=== PATIENT | female | born 1965 | race Caucasian/White ===

== ENCOUNTER 2023-12-30 11:03 | Emergency (ER) | payer MEDICARE ==
[~2023-12-30] VITALS: Ht 162.6 cm; Wt 69.4 kg
[2023-12-30 11:15] VITALS: PULSE 100; RESP 18; TEMP 98.2; O2SAT 99
[2023-12-30] MEDS ORDERED: IOPAMIDOL 370 MG/ML 100 ML INFUS..BTL INJ ONE (14:12)
[2023-12-30] MEDS: SODIUM CHLORIDE 0.9% 1000ML 1,000 ML IV SCH (14:35)
[2023-12-30] MEDS: Morphine 4mg INJECTION 4 MG/ML INJ IV ONE (16:19)
[2023-12-30] MEDS: ONDANSETRON HCL INJ 2MG/ML 2ML 2 MG/ML VIAL IV STA (16:19)
[2023-12-30] MEDS: ACETAMINOPHEN 325 MG TAB PO ONE (16:23)
== END 2023-12-30 19:11 | disposition other institution (70) ==
LOC: FSED 11:36
DX: S32.391A Other fracture of right ilium, initial encounter for closed fracture (principal); M25.561 Pain in right knee; W01.0XXA Fall on same level from slipping, tripping and stumbling without subsequent striking against object, initial encounter; Y92.89 Other specified places as the place of occurrence of the external cause
CPT/HCPCS: 71260; 72132; 73562; 73590; 73700; 74177; 99283; Q9967; J2270; J2405